=== PATIENT | female | born 1940 | race Caucasian/White ===

== ENCOUNTER → 2024-12-10 | Outpatient (CLI) | payer MEDICARE, OTHER ==
--- NOTE | 2024-12-10 12:13 | FL ---
EXAMINATION TYPE: FL barium swallow w video DATE OF EXAM: 12/10/2024 12:05 PM COMPARISON: None. CLINICAL INDICATION: Female, 84 years old with history of R13.10 DYSPHAGIA, UNSPECIFIED; A number of thin and thick substances were ingested under the care of the department of speech pathol ogy. There is no evidence of aspiration or penetration. There is no evidence of obstruction. DAP are not provided. 1 minute and 47 seconds fluoroscopy. 49 images. IMPRESSION: 1. No evidence of aspiration or penetration. [facility], , 12/10/2024 12:10 PM
== END | disposition home or self-care (01) ==
LOC: RADFLMAIN 11:30
PROVIDERS: ATTEND Otolaryngology
DX: R13.10 Dysphagia, unspecified (principal)
CPT/HCPCS: 74230